=== PATIENT | male | born 1930 | race Caucasian/White ===

== ENCOUNTER 2017-11-17 08:08 | Day surgery (SDC) | payer OTHER, BC ==
[~2017-11-17] VITALS: Ht 172.7 cm; Wt 86.2 kg
[~2017-11-17 08:08] MED LIST: ACETAMINOPHEN650 M7 PO; ADVAIR HFA120 INHALA IH; ALDACTONE50 MG PO; AMLODIPINE BES2.5 MG PO; AMLODIPINE BESY10 MG PO; AMLODIPINE BESYL5 MG PO; APRESOLINE100 MG PO; APRESOLINE25 MG PO; ASPERDRINK81 MG PO; ASPIR 8181 M1 PO; ASPIR-LOW81 MG PO; AVAPRO300 MG PO; AVODART0.5 MG PO; Aldactone PO; Apresoline PO; Ascorbic Acid,Ester- PO; Aspirin E.C. PO; B-123000 MCG SL; BACITRACIN28.4 GM TP; CALCITRIOL0.25 MCG PO; CARVEDILOL3.125 MG PO; CARVEDILOL6.25 MG PO; COLACE100 MG PO; CYANOCOBALAM1000 MCG PO; Colace PO; DOCUSATE SODIU100 MG PO; DONEPEZIL HCL10 MG PO; DUONEB 2.5-0.5 M3 ML AEROSOL; Dulcolax PO; ELIQUIS2.5 MG PO; FENOFIBRATE54 M1 PO; FLOMAX0.4 MG PO; FUROSEMIDE20 MG PO; FUROSEMIDE40 MG PO; Flomax PO; GABAPENTIN100 MG PO; GLIPIZIDE10 MG PO; HYDRALAZINE HC100 MG PO; HYDRALAZINE HCL25 MG PO; HYDRALAZINE HCL50 MG PO; IMDUR60 MG PO; IRBESARTAN150 MG PO; IRBESARTAN300 MG PO; ISOSORBIDE MONO60 MG PO; Imdur PO; KLOR-CON M2020 MEQ PO; LASIX40 MG PO; LEVOTHROID88 MCG PO; LEVOTHYROXINE112 MCG PO; LISINOPRIL10 MG PO; LO-DOSE ASPIRIN81 M1 PO; LOFIBRA54 MG PO; LOPRESSOR100 M1 PO; Levothroid,Synthroid PO; MELATIN3 MG PO; MELATONIN3 MG PO; Miralax, Glycolax PO; NORVASC2.5 MG PO; NORVASC5 MG PO; Norvasc PO; OXYCODONE HCL5 MG PO; PAROXETINE HCL20 MG PO; PAXIL40 MG PO; POTASSIUM CHLO20 ME1 PO; POTASSIUM CHLO20 ME2 PO; PREDNISONE10 M1 PO; PRINIVIL10 MG PO; Protonix PO; RENAL-VITE TAB0.8 MG PO; ROCALTROL0.25 MCG PO; Rocaltrol PO; SIMVASTATIN20 MG PO; SPIRONOLACTONE50 MG PO; Senokot,Sennagen PO; TAMSULOSIN HCL0.4 MG PO; TOPROL XL100 MG PO; TRAZODONE HCL50 MG PO; TYLENOL EXTRA500 MG PO; TYLENOL PM1 CAPLET PO; TYLENOL REGULA325 MG PO; Theragran PO; Toprol XL PO; Tylenol Regular Stre PO; VITAMIN D-32000 UNI2 PO; VITAMIN D1000 INTUN PO; VITAMIN D32000 UNI1 PO; Vitamin D PO; ZOCOR20 MG PO
[2017-11-17] MEDS ORDERED: IMDUR30 MG PO (08:44)
[2017-11-17] MEDS ORDERED: SENSIPAR30 MG PO (08:47)
== END 2017-11-17 10:30 | disposition home or self-care (01) ==
LOC: CATH 08:08
PROVIDERS: Surgery
DX: T82.858A Stenosis of other vascular prosthetic devices, implants and grafts, initial encounter (principal); Y83.2 Surgical operation with anastomosis, bypass or graft as the cause of abnormal reaction of the patient, or of later complication, without mention of misadventure at the time of the procedure; I12.0 Hypertensive chronic kidney disease with stage 5 chronic kidney disease or end stage renal disease; E11.22 Type 2 diabetes mellitus with diabetic chronic kidney disease; N18.6 End stage renal disease; Z99.2 Dependence on renal dialysis; Z85.46 Personal history of malignant neoplasm of prostate; D64.9 Anemia, unspecified; E78.00 Pure hypercholesterolemia, unspecified
CPT/HCPCS: 82948; 87641; C1725; C1769; C1894; J1644; J2250; J3010